=== PATIENT | female | born 1995 | race Caucasian/White ===

== ENCOUNTER 2017-11-09 13:23 | Emergency (ER) | payer MEDICAID, OTHER ==
[2017-11-09 13:30] VITALS: BP 122/78; PULSE 92; RESP 18; TEMP 98.4; O2SAT 98
--- NOTE | 2017-11-09 13:43 | C.PDOC ---
History Of Present Illness 21 year old female presents to ED with complaints of left upper toothache for 4 days after tooth cracked. Additionally patient states she has been having flu like symptoms for few days including fever, generalized body aches, congestion, cough. She has been taking Tylenol and Dayquil for symptoms with mild relief. Time Seen by Provider: 11/09/17 13:29 Chief Complaint (Nursing): Dental Pain History Per: Patient History/Exam Limitations: no limitations Onset/Duration Of Symptoms: Days (4) Current Symptoms Are (Timing): Still Present Severity: Mild Quality: Positive for: "Pain" Past Medical History Reviewed: Historical Data, Nursing Documentation, Vital Signs Vital Signs: Last Vital Signs Temp 98.4 F 11/09/17 13:28 Pulse 92 H 11/09/17 13:28 Resp 18 11/09/17 13:28 BP 122/78 11/09/17 13:28 Pulse Ox 98 11/09/17 13:45 - Medical History PMH: No Chronic Diseases Surgical History: No Surg Hx - [facility] Procedures CLOSURE SKIN & SUBCUTANEOUS NEC (12/05/13) Family History: States: Unknown Family Hx - Social History Hx Tobacco Use: No Hx Alcohol Use: No Hx Substance Use: No - Immunization History Hx Tetanus Toxoid Vaccination: No Hx Influenza Vaccination: No Hx Pneumococcal Vaccination: No Review Of Systems Except As Marked, All Systems Reviewed And Found Negative. Constitutional: Positive for: Fever ENT: Positive for: Ear Pain, Nose Congestion, Other (toothache) Cardiovascular: Negative for: Chest Pain Respiratory: Positive for: Cough. Negative for: Shortness of Breath, Wheezing Gastrointestinal: Negative for: Vomiting, Abdominal Pain, Diarrhea Genitourinary: Negative for: Dysuria Musculoskeletal: Positive for: Other (bodyaches) Skin: Negative for: Rash Neurological: Positive for: Headache. Negative for: Weakness, Numbness, Dizziness Physical Exam - Physical Exam Appears: Non-toxic, No Acute Distress Skin: Warm, Dry, No Rash Head: Atraumatic, Normacephalic Eye(s): bilateral: Normal Inspection, EOMI Ear(s): Bilateral: Normal (no erythema) Nose: Normal Oral Mucosa: Moist Tongue: Normal Appearing, No Swelling Lips: Normal Appearing, No Swelling Teeth: Normal Dentition, No Loose, No Avulsed, Other (left upper molar with cavity) Gingiva: No Erythema, No Swelling, No Tender, No Bleeding, No Abscess Throat: Normal, No Erythema, No Exudate, No Drooling, No Mass Neck: Normal ROM Chest: Symmetrical Cardiovascular: Rhythm Regular, No Murmur Respiratory: Normal Breath Sounds, No Wheezing Extremity: Bilateral: Atraumatic, Normal Color And Temperature, Normal ROM Neurological/Psych: Oriented x3, Normal Speech ED Course And Treatment O2 Sat by Pulse Oximetry: 98 Medical Decision Making Medical Decision Making: Patient with toothache and flu like symptoms. Patient has no fever and in no distress. Motrin given for toothache. Patient states she has dentist appointment next week. Patient stable for discharge. Disposition Counseled Patient/Family Regarding: Diagnosis, Need For Followup, Rx Given - Disposition Disposition: HOME/ ROUTINE Disposition Time: 13:53 Condition: GOOD Additional Instructions: Follow up with your dentist for further evaluation of dental pain. Take Motrin with food to not upset your stomach. You have viral upper respiratory infection. Take Tylenol or Motrin alternating every 4-6 hours for Fever 100.4F or higher. Rest and drink plenty of fluids. May use cool mist humidifier or vaporizer in room. Try taking over the counter antihistamine (Claritin, Tamika , Zyrtec), Decongestant or Cough medicine (Mucinex) as needed every 6-8 hours. Follow up with your primary medical doctor or clinic in 1 week for further evaluation. Prescriptions: Ibuprofen [Motrin] 600 mg PO Q8 #30 tab Instructions: Toothache (ED), Viral Syndrome (ED) Forms: [facility] (Bengali) - POA Present On Arrival: None - Clinical Impression Clinical Impression: Toothache, Flu-like symptoms
== END 2017-11-09 14:12 | disposition home or self-care (01) ==
LOC: C.ER 13:23
DX: K08.89 Other specified disorders of teeth and supporting structures (principal); J11.1 Influenza due to unidentified influenza virus with other respiratory manifestations